=== PATIENT | male | born 1935 | race Two or more races ===

== ENCOUNTER 2020-04-12 10:06 | Inpatient (IN) | payer OTHER ==
[~2020-04-12] VITALS: Ht 20.3 cm; Wt 99.8 kg
--- NOTE | 2020-04-12 10:09 | NUR ---
SE RECIBE PACIENTE EN AMBULANCIA REFIERE UTI SE CAESAR S/V Y SE UBICA EN AREA DE OBSERVACION
--- NOTE | 2020-04-12 11:39 | NUR ---
SE LE ORIENTA A PTE SOBRE TRATAMIENTO, MEDICAMENTO E INSTRUCCIONES A SGEUIR, EL REFIERE ENTENDER. SE LE EJECUTAN ORDEN MEDICAS, SE COLECTA MUESTRAS, SE CANALIZA Y SE ADMINISTRA MEDICAMENTO [place] ORDEN MEDICA UTILIZANDO MEDIDAS ASEPTICAS. SE MANTIENE BAJO OBSERVACION POR CAMBIOS.
[2020-04-13] MEDS ORDERED: LUPRON DEPOT30 MG (09:58)
[2020-04-13] MEDS ORDERED: TIMOLOL MALEATE5 M4 (09:58)
[2020-04-13] MEDS ORDERED: BICALUTAMIDE50 MG (09:58)
== END 2020-04-19 18:04 | disposition home health service (06) | DRG 690 ==
LOC: ER 10:06 → SEC-K 14:03 → SURH 04-13 17:43
PROVIDERS: ADMIT Specialist; ATTEND Specialist
PROC: BR29ZZZ Computerized Tomography (CT Scan) of Lumbar Spine (ICD-10-PCS; principal; 2020-04-13)
PROC: BR39ZZZ Magnetic Resonance Imaging (MRI) of Lumbar Spine (ICD-10-PCS; 2020-04-15)
DX: N39.0 Urinary tract infection, site not specified (principal); C79.51 Secondary malignant neoplasm of bone; M48.56XA Collapsed vertebra, not elsewhere classified, lumbar region, initial encounter for fracture; C78.4 Secondary malignant neoplasm of small intestine; C61 Malignant neoplasm of prostate; F03.90 Unspecified dementia, unspecified severity, without behavioral disturbance, psychotic disturbance, mood disturbance, and anxiety; Z20.822 Contact with and (suspected) exposure to COVID-19; D63.0 Anemia in neoplastic disease; E55.9 Vitamin D deficiency, unspecified; Z92.3 Personal history of irradiation; E86.0 Dehydration; Z74.01 Bed confinement status; A08.8 Other specified intestinal infections
CPT/HCPCS: 72148

== ENCOUNTER 2022-11-25 02:27 | Emergency (ER) | payer OTHER ==
[~2022-11-25] VITALS: Ht 172.7 cm; Wt 99.8 kg
[~2022-11-25 02:27] MED LIST: BICALUTAMIDE50 MG; LUPRON DEPOT30 MG; TIMOLOL MALEATE5 M4
[2022-11-25] MEDS ORDERED: CASODEX50 MG PO (03:10)
[2022-11-25] MEDS ORDERED: COZAAR50 MG PO (03:11)
[2022-11-25] MEDS ORDERED: FOLIC ACID1 MG PO (03:11)
[2022-11-25] MEDS ORDERED: ELIQUIS5 MG PO (03:11)
[2022-11-25] MEDS ORDERED: MEMANTINE HCL10 MG PO (03:11)
[2022-11-25] MEDS ORDERED: MELATONIN5 M1 PO (03:13)
[2022-11-25] MEDS ORDERED: VITAMIN D210 MCG (03:13)
[2022-11-25] MEDS ORDERED: ATORVASTATIN CA40 MG PO (03:13)
[2022-11-25] MEDS ORDERED: SEROQUEL50 MG PO (03:14)
[2022-11-25 04:06] LABS: HEMOGLOBIN 10.9 g/dL (13-16.00); MEAN CELL VOLUME 90.1 fL (80.0-100.00); MEAN CORPUSCULAR HEMOGLOBIN 30.7 pg (27.00-32.0); MEAN CORPUSCULAR HGB CONC 34.1 g/dl (32.0-36.0); PLATELET COUNT 260 K/uL (150-450); RED BLOOD COUNT 3.56 M/uL (4.00-6.00); RED CELL DISTRIBUTION WIDTH 14.9 % (11.5-14.5)
[2022-11-25 04:19] LABS: INR 1.22; PARTIAL THROMBOPLASTIN TIME 28.5 SECONDS (22.0-34.0); PROTHROMBIN TIME 12.6 SECONDS (9.0-11.5)
[2022-11-25 04:22] LABS: ALBUMIN 3.5 gm/dL (3.4-5.0); BILIRUBIN TOTAL 0.54 mg/dL (0.3-1.2); CALCIUM 9.2 mg/dL (8.5-10.1); CREATININE SERUM 1.2 mg/dL (0.70-1.30); GFR 57.54; GLOBULINA 3.7 G/DL (2.4-3.5); POTASSIUM 4.52 mEq/L (3.5-5.1); TOTAL PROTEIN 7.2 gm/dL (6.4-8.2)
[2022-11-25 06:39] LABS: PH,URINE 5.5 (5.0-8.0); URINE APPEARANCE Clear; URINE BILIRRUBIN Negative (NEGATIVE); URINE BLOOD Moderate; URINE COLOR Dark Yellow; URINE GLUCOSE Negative (NEGATIVE); URINE LEUKOCYTE Trace; URINE NITRATE Negative; URINE PROTEIN 30 (NEGATIVE)
[2022-11-25 06:40] LABS: URINE BACTERIA 61.7 uL (0.0-1933); URINE EPITHELIAL CELLS 33.6 uL (0.0-38.8); URINE RBC 74.1 uL (0.0-20.8); URINE WBC 45.2 uL (0.0-23.2)
== END 2022-11-26 08:13 | disposition home or self-care (01) ==
LOC: ER 02:27
PROVIDERS: General Practice
DX: C79.9 Secondary malignant neoplasm of unspecified site (principal); R11.10 Vomiting, unspecified; Z85.89 Personal history of malignant neoplasm of other organs and systems; Z88.0 Allergy status to penicillin; E86.0 Dehydration; N39.0 Urinary tract infection, site not specified
CPT/HCPCS: 36415; 74177; 96365; 96366; 99284; J0744; J2405; J3490; J7030; Q9965